=== PATIENT | male | born 1985 | race Caucasian/White ===

== ENCOUNTER 2016-08-07 09:03 | Emergency (ER) | payer OTHER ==
[2016-08-07] MEDS ORDERED: SODIUM CHLORIDE 0.9% 1,000 ML IV ONE ×3 (10:22→12:09)
[2016-08-07] MEDS ORDERED: ONDANSETRON 4 MG/2 ML VIAL IVP STA ×2 (10:22→12:22)
[2016-08-07] MEDS ORDERED: ONDANSETRON 4 MG/2 ML VIAL ONE ×2 (10:26→12:26)
[2016-08-07] MEDS ORDERED: PROMETHAZINE INJ 12.5 MG in SODIUM CHLORIDE 0.9% 50 ML IV STA (11:30)
[2016-08-07] MEDS ORDERED: PROMETHAZINE 25 MG/1 ML VIAL ONE (12:09)
[2016-08-07] MEDS ORDERED: KETOROLAC 60 MG/2 ML VIAL IVP STA (12:22)
[2016-08-07] MEDS ORDERED: KETOROLAC 30 MG/ML VIAL ONE (12:26)
== END 2016-08-07 13:23 | disposition home or self-care (01) ==
DX: K52.9 Noninfective gastroenteritis and colitis, unspecified (principal); E86.0 Dehydration; M54.5 Low back pain; R82.99 Other abnormal findings in urine

== ENCOUNTER 2019-01-24 10:43 | Outpatient (CLI) | payer OTHER ==
--- NOTE | 2019-01-24 13:11 | CONSULTATION NOTE ---
Information from patient questionnaire entered by Alissa Romeo. I have reviewed and concur with the information entered by Alissa Romeo. This document represents the service I personally performed and the decisions made by me, Chiqui Diaz MD, [facility]. - History of Present Illness Chief Complaint: Unrefreshed sleep, Snoring, Observed pauses in breathing, Frequent awakenings at night LADONNA MIRANDA was diagnosed to have severe, AHI 70.3, obstructive sleep apnea- hypopnea syndrome in 2010 at [facility]. He has been using his CPAP regularly with good improvement in symptoms. His ResMed S9 CPAP is set at 10 - 20 cmH20. The compliance report shows usage in 153 out of the past 180 nights, averaging 6.7 hours a night. The residual AHI is 3.3. Average air leak is 2.6 L/min. He wears a ResMed full face mask (probably a Quattro Air). He has not gotten any supplies from [facility] for a while now. The patient tells me that he normally goes to bed around 9:30-10:00 pm, and it takes him approximately 10-15 minutes to fall asleep. His bed partner can still sleep in the same bed. He can recall waking up on the average of 1 time during the night. Most of the time he wakes up because of having to use the restroom. There is a lot of tossing and turning in his sleep. Generally there is no recollection of dreams. He usually wakes up at 6:00am and feels refreshed. He usually [does][does not] have a morning headache. During the day he [complains of feeling][does not feel] sleepy and fatigued. He has never fallen asleep while driving nor has any accident due to sleepiness. He usually does not take naps during the day. 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 Patient is and lives in [place]. Smoked in the past 12 months: Yes Cigarettes per day (20/pack): 10 Years of smokin Smoking Pack Years: 3.0 Alcohol use: Yes Amount and frequency: 3 rarely Caffeine use: Yes Amount and frequency: 2+/day - Family History Family history of sleep disordered breathing: No - Review of Systems Weight gain over past 5 years: 40 Weight loss over past 5 years: 10 Cardiovascular: denies: high blood pressure, palpitations, chest pain, irregular heart rate or pulse, leg or foot swelling, have to sleep sitting up, other: Respiratory: denies: shortness of breath, wheeze, sputum production, chronic cough, other: Gastrointestinal: denies: heartburn, difficulty swallowing, nausea, vomitting, diarrhea, abdominal pain, other: Urinary: denies: incontinence, frequency, urgency, impotence, other: Neurological: denies: headaches, seizure, head trauma, disorientation, speech dysfunction, gait or balance problems, fainting or unconsciousness, other: Psychiatric: reports: depression Ear/Nose/Throat: reports: nose bleeds (when young) Endocrine: denies: thyroid disease, history of goiter, sluggishness, too hot or cold, excessive thirst, increased appetite, increased urination, unexplained weakness, other: Musculoskeletal: denies: joint pain, neck pain, back pain, joint swelling, muscle pain or cramping, mobility problems, other: Immunologic: denies: sneezing, rash, itching, allergies to food or environment, other: - Physical Examination Vital signs obtained and documented by: Dr. Diaz Blood Pressure: 120/70 Cuff size: long Heart Rate: 92 O2 Saturation: 97 Height: 6 ft 1 in Weight (kg): 117.934 kg Body Mass Index: 34.2 BMI Classification: Class 1 Neck circumference: 16.5 Mood/affect: normal HEENT: No craniofacial malformation Nostrils: patent to airflow Turbinates: normal Septum: midline Mouth and throat: narrow oropharynx Soft palate: long Hard palate: normal Uvula: normal Tongue: normal in size Tonsils: absent bilaterally Chin and jaw: normal size and position Neck: normal w/o lymphadenopathy or thyromegaly Heart: regular rate and rhythm Lungs: clear bilaterally Abdomen: soft, non-tender Extremities: no edema or clubbing Neurologic: intact, no focal deficits - Impression 1. Obstructive Sleep Apnea-Hypopnea Syndrome, severe as previously diagnosed.unrefreshed sleep. The patient is using his CPAP consistently. The current pressure setting appears effective. His machine is now too old and can be replaced. I will order him a new autoCPAP set between 10 - 20 cmH20. He should try newer full face masks. Another sleep study is not necessary at this time - Plan Prescription made for a new autoCPAP device along with related supplies. Attempt to lose weight. Return for follow-up after one month on the new device. I spent 100% of this 15 minute visit face to face with the patient with greater than 50% of this was spent time counseling the patient and coordination of care.
[2019-01-24 13:12] VITALS: BP 120/70
== END 2019-01-24 10:44 | disposition home or self-care (01) ==
LOC: SC 10:43
PROVIDERS: ATTEND Internal Medicine Pulmonary Disease
DX: G47.33 Obstructive sleep apnea (adult) (pediatric) (principal)
CPT/HCPCS: 99203; 99212

== ENCOUNTER 2019-05-02 14:02 | Outpatient (CLI) | payer OTHER ==
--- NOTE | 2019-05-02 14:37 | SLEEP CARE CONSULTATION ---
Information from patient questionnaire entered by Alissa Romeo. I have reviewed and concur with the information entered by Alissa Romeo. This document represents the service I personally performed and the decisions made by me, Chiqui Diaz MD, [facility]. History of Present Illness Previous diagnosis: Severe, Obstructive Sleep Apnea-Hypopnea Syndrome AHI: 70.3 Reason for follow up: first compliance Equipment type: CPAP Equipment obtained from: [employer] Prior sleep studies: Yes HPI additional information: HPI: Mr. Dumont returned today for follow up of nasal CPAP therapy. He was diagnosed to have very severe obstructive sleep apnea-hypopnea syndrome. The patient recently acquired a new Respironics DreamStation AutoCPAP from [employer]. He wears a ResMed N-20 a nasal mask. He reports using the device nightly and all through the night. The compliance report shows usage in 29 nights out of the past 30 nights, averaging 7.2 hours a night. He complained of no particular problem with the device such as soreness on the face, dry nose, epistaxis, nasal congestion or headache. He thinks that the pressure of 10 12 cmH2O is comfortable. On the CPAP therapy he notices improvement in his sleep quality, and that he wakes up feeling fresher in the morning and more awake/alert during the day. His notices no snore at all. The average residual AHI is 2.2; and average time in large leak per day is 52 seconds. The 90th percentile pressure is 17.1 cmH2O. CPAP Compliance Data - Data Reviewed with Patient Average duration of nightly device use: 7H 10M Compliance rate %: 93.3 Current pressure setting (cmH2O): 10-20 Humidity settin Heated hose setting: off Average residual AHI: 2.2 Average large leak: 52s Subjective Current pressure setting perceived as: comfortable Initial [place] Sleepiness Scale score: 4 Current [place] Sleepiness Scale score: 3 Allergies and Home Medications Drug allergies reviewed: Yes Home medication list reviewed: Yes Review of Systems Review of systems same as previous: Yes Physical Exam Weight: 260 lb Impression and Plan IMPRESSION: 1. Obstructive Sleep Apnea-Hypopnea Syndrome, very severe, with the patient doing well on nasal CPAP therapy. He has excellent compliance and significant clinical improvement. The current pressure appears effective and comfortable. Overall, he is very satisfied with treatment and plans to continue with it long- term. No adjustment is necessary today. PLAN: 1. Continue with autoCPAP set at 10 - 20 cmH2O. 2. Try to lose weight 3. Try Respironics DreamWear nasal cushion mask and ResMed N30i mask. 4. Return in one year for follow up or earlier if there is any problem with the treatment. I spent 100% of this 20 minute visit face to face with the patient with greater than 50% of this was spent time counseling the patient and coordination of care.
== END 2019-05-02 14:03 | disposition home or self-care (01) ==
LOC: SC 14:02
PROVIDERS: ATTEND Internal Medicine Pulmonary Disease
DX: G47.33 Obstructive sleep apnea (adult) (pediatric) (principal)
CPT/HCPCS: 99212; 99213